=== PATIENT | female | born 1965 | race Two or more races ===

== ENCOUNTER 2017-12-31 14:52 | Emergency (ER) | payer MEDICAID ==
[~2017-12-31] VITALS: Ht 149.9 cm; Wt 64.4 kg
[2017-12-31 15:14] VITALS: BP 125/72
[2017-12-31 15:51] LABS: Urine Bacteria NONE SEEN /hpf (None Seen); Urine Blood Negative /uL (Negative); Urine Specific Gravity 1.016 (1.001-1.035); Urine WBC 1 /hpf (0 - 5)
[2017-12-31 16:15] LABS: Basophils # (auto) 0 uL; Basophils % (auto) 0.4 % (0.0-2.0); Eosinophils # (auto) 0 uL; Eosinophils % (auto) 0.5 % (0.0-7.0); Hematocrit 40.6 % (36.0-46.0); Hemoglobin 13.7 g/dL (12.2-16.2); Lymphocytes # (auto) 1.6 uL; Lymphocytes % (auto) 20.9 % (10.0-50.0); Mean Corpuscular Hgb Conc. 33.7 g/dL (32.0-36.0); Mean Corpuscular Volume 91.9 fL (80.0-100.0); Monocytes # (auto) 0.4 uL; Monocytes % (auto) 5.9 % (0.0-12.0); Neutrophils # (auto) 5.4 uL; Neutrophils % (auto) 72.3 % (37.0-80.0); Nucleated Red Blood Cells % 0.1 %; Platelet Count (auto) 426 10^3/uL (140-450); Red Blood Cells 4.41 10^6/uL (4.0-5.20); Red Cell Distribution Width 14.2 % (11.8-14.3); White Blood Cell 7.5 10^3/uL (4.4-10.8)
[2017-12-31 16:37] LABS: Alanine Aminotransferase 29 U/L (13-56); Albumin 3.6 g/dL (3.4-5.0); Alkaline Phosphatase 101 U/L (45-117); Anion Gap 9 (5-15); Aspartate Aminotransferase 15 U/L (15-37); BUN/Creatinine Ratio 11.4; Bilirubin, Total 0.2 mg/dL (0.2-1.0); Blood Urea Nitrogen 9 mg/dL (7-18); Calcium 8.8 mg/dL (8.5-10.1); Carbon Dioxide 24 mmol/L (21-32); Chloride 103 mmol/L (98-107); GFR African American 99 mL/min; GFR Non-African American 82 mL/min; Glucose 105 mg/dL (74-106); Potassium 3.9 mmol/L (3.5-5.1); Sodium 136 mmol/L (136-145); Total Protein 7.6 g/dL (6.4-8.2)
== END 2017-12-31 17:08 | disposition home or self-care (01) ==
LOC: ER 14:52
DX: R06.02 Shortness of breath (principal); M25.511 Pain in right shoulder
CPT/HCPCS: 36415; 71046; 80053; 81001; 84484; 85025; 93005

== ENCOUNTER 2019-12-27 12:37 | Emergency (ER) | payer MEDICAID ==
[~2019-12-27] VITALS: Ht 149.9 cm; Wt 68.6 kg
[2019-12-27 13:03] VITALS: BP 142/80
== END 2019-12-27 15:54 | disposition left against medical advice (07) ==
LOC: ER 12:37
DX: J02.9 Acute pharyngitis, unspecified (principal); Z53.21 Procedure and treatment not carried out due to patient leaving prior to being seen by health care provider